=== PATIENT | female | born 1950 ===

== ENCOUNTER 2022-11-10 11:14 | Emergency (ER) | payer MEDICARE ==
[2022-11-10] MEDS ORDERED: cefTRIAXone 1 GM Vial IM ONE (11:58)
[2022-11-10] MEDS ORDERED: methylPREDNISolone Sodium Succinate 40 MG/1 ML SDV IM ONE (11:59)
[2022-11-10] MEDS ORDERED: cefTRIAXone 1 GM Vial ONE (12:04)
[2022-11-10] MEDS ORDERED: methylPREDNISolone Sodium Succinate 40 MG/1 ML SDV ONE (12:04)
[2022-11-10 12:07] LABS: BASOPHILS ABSOLUTE AUTO 0.02 K/uL (0.02-0.10); BASOPHILS PERCENT AUTO 0.2 % (0.0-0.5); EOSINOPHILS ABSOLUTE AUTO 0.04 K/uL (0.04-0.40); EOSINOPHILS PERCENT AUTO 0.3 % (1.0-5.0); HEMATOCRIT 40.3 % (37.0-47.0); HEMOGLOBIN 13.3 g/dL (11.5-16.5); LYMPHOCYTES ABSOLUTE AUTO 2.23 K/uL (1.50-4.00); MEAN CORPUSCULAR HEMOGLOBIN 30.4 pg (27.0-32.0); MEAN CORPUSCULAR VOLUME 92 fL (76-96); MONOCYTES ABSOLUTE AUTO 1.23 K/uL (0.20-0.80); MONOCYTES PERCENT AUTO 9.9 % (3.0-10.0); NEUTROPHILS ABSOLUTE AUTO 8.85 K/uL (2.00-7.50); NEUTROPHILS PERCENT AUTO 71.6 % (45.0-70.0); PLATELET COUNT,PLT 275 K/uL (150-500); RED BLOOD CELL COUNT 4.38 M/uL (3.80-5.80); RED CELL DISTRIBUTION WIDTH 13.6 % (11.0-16.0); WHITE BLOOD CELL COUNT,WBC 12.4 K/uL (4.0-11.0)
[2022-11-10] MEDS ORDERED: Sulfamethoxazole/Trimethoprim 800-160 MG Tab ONE ×2 (12:30→12:39)
== END 2022-11-10 12:45 | disposition home or self-care (01) ==
LOC: SUPCPDRO 11:14 → LB.ED 11:14
DX: R22.1 Localized swelling, mass and lump, neck (principal)
CPT/HCPCS: 36415; 85025; 96372; 99283; A9270-GY; J0696; J2920